=== PATIENT | male | born 1975 | race African-American/Black ===

== ENCOUNTER 2018-02-23 12:05 | Emergency (ER) | payer MEDICAID, OTHER ==
[~2018-02-23] VITALS: Ht 185.4 cm; Wt 81.6 kg
[~2018-02-23 12:05] MED LIST: IBUPROFEN600 MG ORAL; NORCO 5-325 TA1 EACH ORAL
[2018-02-23] MEDS ORDERED: NKM (12:17)
[2018-02-23] MEDS ORDERED: Lidocaine 1% MPF 10mg/ml 5ml INJ ONE (12:30)
[2018-02-23] MEDS ORDERED: Tetanus/Diptheria/Pertussis Vaccine 0.5ml Syr IM ONE (12:30)
[2018-02-23] MEDS ORDERED: HYDROcodone/Acetamin 7.5/325 tab ORAL ONE (12:30)
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
[2018-02-23] MEDS ORDERED: NORCO 5-325 TA1 EAC1 ORAL (14:47)
[2018-02-23] MEDS ORDERED: IBUPROFEN600 MG ORAL (14:47)
[2018-02-23 14:56] VITALS: BP 138/86
--- NOTE | 2018-02-24 08:25 | Diagnostic Imaging Report ---
Clinical Indication:Pain Technique: 3 views of the right wrist Comparison: None Findings: No acute fractures. No dislocations. The joint spaces are preserved Impression: Negative
--- NOTE | 2018-02-24 08:26 | Diagnostic Imaging Report ---
Clinical Indication:Pain Technique: 3 views of the left wrist Comparison: None Findings: No acute fractures. No dislocations. The joint spaces are preserved Impression: Negative
--- NOTE | 2018-02-24 08:27 | Diagnostic Imaging Report ---
Indication: Pain Technique: 3 views of the right shoulder Comparison: none Findings: No acute fractures. No dislocations. Joint spaces are preserved. Impression: Negative
== END 2018-02-23 14:56 | disposition home or self-care (01) ==
LOC: EMR 12:44
DX: S01.81XA Laceration without foreign body of other part of head, initial encounter (principal); S40.211A Abrasion of right shoulder, initial encounter; S60.812A Abrasion of left wrist, initial encounter; S60.811A Abrasion of right wrist, initial encounter; S80.212A Abrasion, left knee, initial encounter; S80.211A Abrasion, right knee, initial encounter; S50.312A Abrasion of left elbow, initial encounter; S50.311A Abrasion of right elbow, initial encounter; Z23 Encounter for immunization; V87.7XXA Person injured in collision between other specified motor vehicles (traffic), initial encounter; Y93.51 Activity, roller skating (inline) and skateboarding; Y92.410 Unspecified street and highway as the place of occurrence of the external cause
CPT/HCPCS: 12013; 73030; 73110; 90471; 90715; 99284; Z7502

== ENCOUNTER 2018-02-28 16:10 | Emergency (ER) | payer MEDICAID ==
[~2018-02-28] VITALS: Ht 185.4 cm; Wt 81.6 kg
[~2018-02-28 16:10] MED LIST changes: +NKM; +NORCO 5-325 TA1 EAC1 ORAL
--- NOTE | 2018-02-28 16:40 | Emergency Room Report ---
History of Present Illness General Chief Complaint: Wound Recheck/Suture Removal Source: Patient Present Illness HPI 42 yo male patient presents to ER for wound check and suture removal. Reports seen in ER 5 days ago for facial laceration. Patient reports 4 sutures placed. Denies new or worsening of symptoms. Reports taking medication as indicated. Denies fever, chest pain, SOB, vomiting. Allergies: Coded Allergies: No Known Allergies (Unverified , 11/08/14) Patient History Past Medical History: see triage record Reviewed Nursing Documentation: PMH: Agreed; PSxH: Agreed Nursing Documentation-PMH Past Medical History: No Stated History Review of Systems All Other Systems: negative except mentioned in HPI Physical Exam Vital Signs Date Time Temp Pulse Resp B/P (MAP) Pulse Ox O2 Delivery O2 Flow Rate FiO2 02/28/18 16:23 98.3 61 20 120/80 96 Room Air 98.2 Sp02 EP Interpretation: reviewed, normal General Appearance: well appearing, no apparent distress, alert, GCS 15, non- toxic Head: normocephalic, atraumatic Eyes: bilateral eye normal inspection, bilateral eye PERRL Respiratory: lungs clear, normal breath sounds, no rhonchi, no respiratory distress, no accessory muscle use, no wheezing, speaking full sentences Cardiovascular #1: regular rate, rhythm, no edema Musculoskeletal: back normal, digits/nails normal, gait/station normal, normal range of motion, non-tender Neurologic: alert, oriented x3, responsive, motor strength/tone normal, sensory intact Psychiatric: mood/affect normal Skin: other - healing 4 cm laceration, 4 sutures, scabbing, no bleeding, mild edema, no erythema, no signs of infection, no active drainage Medical Decision Making PA Attestation Dr. Bernabe is my supervising Physician whom patient management has been discussed with. Diagnostic Impression: Primary Impression: Encounter for removal of sutures ER Course Pt. presents to the ED requesting wound check of facial laceration Ddx considered but are not limited to cellulitis, wound check, suture removal. Vital signs: are WNL, pt. is afebrile ORDERS: none required at this time. ED INTERVENTIONS: Reviewed pervious report, states 7 sutures placed. 4 sutures seen and removed on physical exam. Patient reports only seeing 4 sutures placed. Possible sutures fell out or 3 deep sutures placed. Wound has no signs of infection, TTP, sensation is intact to light touch. Patient is resting comfortably, in no acute distress, non-toxic appearing. Bacitracin applied. Patient instructed to return to ER for new or worsening of symptoms. DISCHARGE: Rx provided for Bacitracin. Patient instructed to continue with medications per initial ER provider instructions. At this time pt. is stable for d/c to home. Patient is resting comfortably, in no acute distress, non-toxic appearing, talking without difficulty. Will provide printed patient care instructions and any necessary prescriptions. Care plan and follow up instructions have been discussed with the patient prior to discharge. Patient instructed to follow-up with primary care provider for further treatment and referral. Patient questions asked and answered. ER precautions given. Patient instructed to return to ER immediately for any new or worsening of symptoms including but not limited to fever, worsening of pain symptoms. Last Vital Signs Date Time Temp Pulse Resp B/P (MAP) Pulse Ox O2 Delivery O2 Flow Rate FiO2 02/28/18 16:23 98.3 61 20 120/80 96 Room Air 98.2 Disposition: HOME, SELF-CARE Condition: Stable Scripts Bacitracin/Polymyxin B Sulfate (POLYSPORIN OINTMENT) 28.3 Gm Oint...g. 1 APPLIC TP BID, #28.3 GM 0 Refills Prov: Travis Obando 02/28/18 Patient Instructions: Suture Removal, Care After, Wound Check Additional Instructions: Followup with primary care provider in 3 -5 days. Take medications as directed. Patient questions asked and answered. ER precautions given, patient instructed to return to ER immediately for any new or worsening of symptoms. Travis Obando Feb 28, 2018 16:40
[2018-02-28 17:00] VITALS: BP 120/80
[2018-02-28] MEDS ORDERED: Bacitracin Oint UD TOPIC ONE (17:00)
[2018-02-28] MEDS ORDERED: POLYSPORIN OI28.3 GM TP (17:08)
== END 2018-02-28 17:00 | disposition home or self-care (01) ==
LOC: EMR 16:44
DX: S01.81XD Laceration without foreign body of other part of head, subsequent encounter (principal); X58.XXXD Exposure to other specified factors, subsequent encounter; Z48.02 Encounter for removal of sutures
CPT/HCPCS: 99283